=== PATIENT | female | born 1975 ===

== ENCOUNTER 2017-02-02 16:49 | Emergency (ER) | payer OTHER ==
[2017-02-02 16:50] VITALS: BMI 21.4
--- NOTE | 2017-02-02 16:59 | ED PDOC ---
HPI: Psych/Substance Abuse Time Seen by Provider: 02/02/17 16:55 Chief Complaint (Nursing): Psychiatric Evaluation Chief Complaint (Provider): crisis eval History Per: Patient, EMS Additional Complaint(s): Patient presents to ED for crisis eval. [facility]. EMS were called and she was brought here. Patient admits to being under a lot of stress over the past several weeks because her children were taken away from her. She also found out last week she is . Upon arrival, patient is tearful and anxious but she denies any suicidal or homicidal ideation. Patient denies any abd pain or vaginal bleeding. She has had no care during this so far and she states she is about 11 weeks . Patient also states she has h/o diabetes diagnosed in 07-08 but she has been non-compliant with her DM meds. Past Medical History Reviewed: Historical Data - Medical History PMH: Diabetes, HTN, Hypercholesterolemia - Surgical History Surgical History: (x 1) - Family History Family History: States: No Known Family Hx - Living Arrangements Living Arrangements: With Family - Social History Current smoker - smoking cessation education provided: No Alcohol: None Drugs: Denies - Immunization History Hx Tetanus Toxoid Vaccination: (UTD) - Home Medications Home Medications: Ambulatory Orders Medication Instructions Recorded MetFORMIN [glucOPHAGE] 1,000 mg PO BID 08/07/15 Pill For Hypotension 08/07/15 MetFORMIN [glucoPHAGE] 500 mg PO BID #60 tab 02/02/17 Comb No.42/Folic Acid 1 tab PO DAILY #60 tab 02/02/17 [Prena1 Chew] - Allergies Allergies/Adverse Reactions: Allergies Allergy/AdvReac Type Severity Reaction Status Date / Time No Known Allergies Allergy Verified 03/08/15 20:55 Review of Systems ROS Statement: Except As Marked, All Systems Reviewed And Found Negative Cardiovascular: Negative for: Chest Pain Respiratory: Negative for: Cough Gastrointestinal: Negative for: Nausea, Vomiting Genitourinary Female: Positive for: Other (11 weeks ) Psych: Positive for: Anxiety. Negative for: Suicidal ideation Physical Exam - Reviewed Nursing Documentation Reviewed: Yes Vital Signs Reviewed: Yes - Physical Exam Appears: Positive for: Well, Non-toxic, No Acute Distress Skin: Negative for: Rash Eye Exam: Positive for: Normal appearance Cardiovascular/Chest: Positive for: Regular Rate, Rhythm Respiratory: Positive for: Normal Breath Sounds Gastrointestinal/Abdominal: Positive for: Soft. Negative for: Tenderness, Distended, Guarding, Rebound Back: Negative for: L CVA Tenderness, R CVA Tenderness Extremity: Positive for: Normal ROM Neurologic/Psych: Positive for: Alert, Oriented - Laboratory Results Result Diagrams: 02/02/17 18:20 02/02/17 19:23 - ECG O2 Sat by Pulse Oximetry: 99 Pulse Ox Interpretation: Normal - Other Rad OB US X-Ray: Read By Radiologist X-Ray Interpretation: see below Medical Decision Making Medical Decision Makin41 year old female with anxiety. 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 Sunshine, patient does not meet criteria for admission and is stable for discharge. US: FINDINGS: Gestation: There is a single live intrauterine gestation. There is a heart rate of 152 beats per minute. Gestational sac has mean diameter 15.5 mm. [place] rump length measures approximately 43.2 mm. Uterus: Uterus measures approximately 11.3 x 6 x 8.4 cm. Ovaries: Left ovary measures approximately 2.95 x 2.66 x 2.21 cm. There is a corpus luteum in the left ovary. Right ovary is not well visualized. There are no right adnexal masses. Free fluid: There is no free fluid. IMPRESSION: 11 week 0 day single living intrauterine gestation, estimated date of delivery 08/24/17. Patient is aware of all diagnostic testing results, all questions answered. Patient given prescriptions for vitamins and metformin. I stressed to patient the importance of taking the metformin. She was referred to women's clinic for follow-up. Disposition - Clinical Impression Clinical Impression: Diabetes mellitus, , Depression - Patient ED Disposition Is Patient to be Admitted: No Counseled Patient/Family Regarding: Studies Performed, Diagnosis, Need For Followup, Rx Given - Disposition Referrals: [facility] [Outside] Disposition: Routine/Home Disposition Time: 20:47 Condition: STABLE Additional Instructions: Take rx meds as directed. Follow up in 2-3 days with women's clinic. Follow up as directed by crisis counselor. Prescriptions: MetFORMIN [glucoPHAGE] 500 mg PO BID #60 tab Comb No.42/Folic Acid [Prena1 Chew] 1 tab PO DAILY #60 tab Instructions: Depression (ED), (ED), Diabetes Mellitus Type 2 in Adults (ED) Forms: [employer] (Martiniquais) Print Language: INDONESIAN Results - Lab Results Lab Results: 02/02/17 02/02/17 02/02/17 19:23 18:20 18:20 WBC RBC Hgb Hct MCV MCH MCHC RDW Plt Count MPV Neut % (Auto) Lymph % (Auto) [place] % (Auto) Eos % (Auto) Baso % (Auto) Neut # Lymph # [place] # Eos # Baso # Sodium 136 Potassium 4.0 Chloride 101 Carbon Dioxide 24 Anion Gap 15 BUN 7 Creatinine 0.5 L Est GFR ( Amer) > 60 Est GFR (Non-Af Amer) > 60 Random Glucose 266 H Calcium 9.5 Total Bilirubin 0.5 AST 24 ALT 23 Alkaline Phosphatase 86 Total Protein 7.4 Albumin 4.3 Globulin 3.1 Albumin/Globulin Ratio 1.4 Beta HCG, Quant Pending Urine Color Straw Urine Clarity Slighty-cloudy Urine pH 7.0 Ur Specific [place] 1.010 Urine Protein Negative Urine Glucose (UA) >=500 Urine Ketones Negative Urine Blood Negative Urine Nitrate Negative Urine Bilirubin Negative Urine Urobilinogen 0.2-1.0 Ur Leukocyte Esterase Trace Urine RBC (Auto) 3 Urine Microscopic WBC 5 Ur Squamous Epith Cells 7 H Urine Bacteria Rare Urine Opiates Screen Negative Urine Methadone Screen Negative Ur Barbiturates Screen Negative Ur Phencyclidine Scrn Negative Ur Amphetamines Screen Negative U Benzodiazepines Scrn Negative U Oth Cocaine Metabols Negative U Cannabinoids Screen Negative Alcohol, Quantitative 02/02/17 02/02/17 18:20 18:20 WBC 8.8 RBC 4.22 Hgb 13.4 Hct 38.7 MCV 91.7 D MCH 31.6 H MCHC 34.5 RDW 12.8 Plt Count 199 MPV 8.4 Neut % (Auto) 73.8 Lymph % (Auto) 18.9 L [place] % (Auto) 6.1 Eos % (Auto) 1.0 Baso % (Auto) 0.2 Neut # 6.5 Lymph # 1.7 [place] # 0.5 Eos # 0.1 Baso # 0.0 Sodium Potassium Chloride Carbon Dioxide Anion Gap BUN Creatinine Est GFR ( Amer) Est GFR (Non-Af Amer) Random Glucose Calcium Total Bilirubin AST ALT Alkaline Phosphatase Total Protein Albumin Globulin Albumin/Globulin Ratio Beta HCG, Quant Urine Color Urine Clarity Urine pH Ur Specific [place] Urine Protein Urine Glucose (UA) Urine Ketones Urine Blood Urine Nitrate Urine Bilirubin Urine Urobilinogen Ur Leukocyte Esterase Urine RBC (Auto) Urine Microscopic WBC Ur Squamous Epith Cells Urine Bacteria Urine Opiates Screen Urine Methadone Screen Ur Barbiturates Screen Ur Phencyclidine Scrn Ur Amphetamines Screen U Benzodiazepines Scrn U Oth Cocaine Metabols U Cannabinoids Screen Alcohol, Quantitative < 10
[2017-02-02 17:03] VITALS: BP 123/71; PULSE 84; RESP 18; TEMP 97; O2SAT 99
[2017-02-02 18:39] LABS: BASO % 0.2 % (0.0-2.0); EOS # 0.1 K/uL (0.0-0.7); HEMATOCRIT 38.7 % (34.0-47.0); LYMPH # 1.7 K/uL (1.0-4.3); LYMPH % 18.9 % (20.0-40.0); MEAN CELL VOLUME 91.7 fl (81.0-99.0); MEAN CORPUSCULAR HEMOGLOBIN 31.6 pg (27.0-31.0); MEAN CORPUSCULAR HGB CONC 34.5 g/dL (33.0-37.0); MEAN PLATELET VOLUME 8.4 fl (7.2-11.7); MONO # 0.5 K/uL (0.0-0.8); MONO % 6.1 % (0.0-10.0); NEUT # 6.5 K/uL (1.8-7.0); NEUT % 73.8 % (50.0-75.0); RED CELL DISTRIBUTION WIDTH 12.8 % (11.5-14.5); WHITE BLOOD COUNT 8.8 K/uL (4.8-10.8)
[2017-02-02 19:04] LABS: RBC URINE 3 /hpf (0-3); URINE BACTERIA RARE (<OCC); URINE BILIRUBIN NEGATIVE (NEGATIVE); URINE BLOOD NEGATIVE (NEGATIVE); URINE COLOR STRAW (YELLOW); URINE GLUCOSE (UA) >=500 mg/dL (Normal); URINE KETONE NEGATIVE (NEGATIVE); URINE LEUKOCYTE ESTERASE TRACE Leu/uL (Negative); URINE PROTEIN NEGATIVE (NEGATIVE); URINE UROBILINOGEN 0.2-1.0 mg/dL (0.2-1.0); WBC URINE 5 /hpf (0-5)
[2017-02-02 19:33] LABS: ALB/GLOB RATIO 1.4 (1.0-2.1); ALKALINE PHOSPHATASE 86 U/L (38-126); ALT/SGPT 23 U/L (9-52); AST/SGOT 24 U/L (14-36); BILIRUBIN,TOTAL 0.5 mg/dl (0.2-1.3); BLOOD UREA NITROGEN 7 mg/dl (7-17); CALCIUM 9.5 mg/dL (8.4-10.2); CARBON DIOXIDE 24 mmol/L (22-30); CHLORIDE 101 mmol/L (98-107); GFR AFRICAN-AMERICAN > 60; GLUCOSE,RANDOM 266 mg/dL (65-105); SODIUM 136 mmol/l (132-148); TOTAL PROTEIN 7.4 G/DL (6.3-8.2)
--- NOTE | 2017-02-02 19:50 | US ---
EXAM: US First Trimester, Transabdominal EXAM DATE/TIME: 02/02/2017 5:22 PM CLINICAL HISTORY: 41 years old, female; Pain; complicated by abdominal or pelvic pain; Lower; First trimester; LMP: 11/24/2016; ; Additional info: 11 weeks, cramping pain TECHNIQUE: Real-time transabdominal obstetrical ultrasound of the maternal pelvis and a first trimester with image documentation. COMPARISON: There are no prior studies for comparison. FINDINGS: Gestation: There is a single live intrauterine gestation. There is a heart rate of 152 beats per minute. Gestational sac has mean diameter 15.5 mm. [place] rump length measures approximately 43.2 mm. Uterus: Uterus measures approximately 11.3 x 6 x 8.4 cm. Ovaries: Left ovary measures approximately 2.95 x 2.66 x 2.21 cm. There is a corpus luteum in the left ovary. Right ovary is not well visualized. There are no right adnexal masses. Free fluid: There is no free fluid. IMPRESSION: 11 week 0 day single living intrauterine gestation, estimated date of delivery 08/24/17
== END 2017-02-02 21:15 | disposition home or self-care (01) ==
LOC: H.ER 16:49
DX: F41.0 Panic disorder [episodic paroxysmal anxiety] (principal); F32.9 Major depressive disorder, single episode, unspecified; Z79.84 Long term (current) use of oral hypoglycemic drugs; O24.911 Unspecified diabetes mellitus in pregnancy, first trimester; O99.341 Other mental disorders complicating pregnancy, first trimester; Z3A.11 11 weeks gestation of pregnancy; Z91.14 Patient's other noncompliance with medication regimen

== ENCOUNTER 2017-04-17 13:17 | Emergency (ER) | payer MEDICAID, OTHER ==
[2017-04-17 13:18] VITALS: BMI 21.4
[2017-04-17 13:23] VITALS: BP 112/65; PULSE 106; RESP 16; TEMP 97.7; O2SAT 100
--- NOTE | 2017-04-17 14:12 | ED PDOC ---
HPI: Psych/Substance Abuse Time Seen by Provider: 04/17/17 13:37 Chief Complaint (Nursing): Altered Mental Status Chief Complaint (Provider): intoxication Additional Complaint(s): 41yo F in ER approximately 16-17 weeks in ER found by EMS in public with bizarre behavior and unstable gait. PT states she a diabetic and believes her BS is elevated. in ER pt with slurred speech, etoh on breath and unstable gait. Past Medical History Reviewed: Historical Data, Nursing Documentation, Vital Signs Vital Signs: Last Vital Signs Temp 97.7 F 04/17/17 13:19 Pulse 106 H 04/17/17 13:19 Resp 16 04/17/17 13:19 BP 112/65 04/17/17 13:19 Pulse Ox 100 04/17/17 13:19 - Medical History PMH: Diabetes, HTN, Hypercholesterolemia Denies: Hepatitis, HIV, Seizures, Sexually Transmitted Disease - Surgical History Surgical History: (x 1) - Family History Family History: States: No Known Family Hx - Immunization History Hx Tetanus Toxoid Vaccination: (UTD) - Home Medications Home Medications: Ambulatory Orders Medication Instructions Recorded MetFORMIN [glucOPHAGE] 1,000 mg PO BID 08/07/15 Pill For Hypotension 08/07/15 MetFORMIN [glucoPHAGE] 500 mg PO BID #60 tab 02/02/17 Comb No.42/Folic Acid 1 tab PO DAILY #60 tab 02/02/17 [Prena1 Chew] MetFORMIN [glucoPHAGE] 500 mg PO BID #60 tab 03/10/17 Nitrofurantoin Macrocrystals 100 mg PO BID #14 cap 03/10/17 [Macrobid] - Allergies Allergies/Adverse Reactions: Allergies Allergy/AdvReac Type Severity Reaction Status Date / Time No Known Allergies Allergy Verified 03/08/15 20:55 Review of Systems Review Of Systems: ROS cannot be obtained secondary to pt's inabilty to answer questions. Physical Exam - Reviewed Nursing Documentation Reviewed: Yes Vital Signs Reviewed: Yes - Physical Exam Appears: Positive for: Non-toxic, No Acute Distress Head Exam: Positive for: ATRAUMATIC, NORMAL INSPECTION, NORMOCEPHALIC Skin: Positive for: Normal Color, Warm, DRY Eye Exam: Positive for: EOMI, Normal appearance, PERRL ENT: Positive for: Normal ENT Inspection Neck: Positive for: Normal, Painless ROM Cardiovascular/Chest: Positive for: Regular Rate, Rhythm Respiratory: Positive for: CNT, Normal Breath Sounds Gastrointestinal/Abdominal: Positive for: Normal Exam, Bowel Sounds, Soft. Negative for: Tenderness Neurologic/Psych: Positive for: Alert, Oriented, Other (intoxicated) - Laboratory Results Result Diagrams: 04/17/17 14:22 04/17/17 14:22 - ECG O2 Sat by Pulse Oximetry: 100 - Progress ED Course And Treament: concerns ofr intoxication. [facility] contacted and made aware. Pt has an existing open case. will order: Orders Category Date Time Status ALCOHOL SERUM Stat Chem 04/17/17 13:36 Uncollected COMP METABOLIC PANEL Stat Chem 04/17/17 13:35 Uncollected TROPONIN I Stat Chem 04/17/17 13:35 Uncollected CBC (WITH DIFFERENTIAL) Stat RADHA 04/17/17 13:35 Uncollected Glucose, Blood, POC STAT Pt Care 04/17/17 13:36 Active URINALYSIS Stat URINALYSIS 04/17/17 13:35 Uncollected Medical Decision Making Medical Decision Making: pt will need a pysch evaluation. 17:57: Pt left prior to completion of treatment PT removed own heplock-found in trash along with IV bag NS. PT did not admit to SI/HI. DYFS made aware of case. according to nursing staff-pt was seen ambulatory in room with stable gait. Disposition - Clinical Impression Clinical Impression: Alcohol intoxication, - Patient ED Disposition Is Patient to be Admitted: No Counseled Patient/Family Regarding: Need For Followup - Disposition Disposition: Left W/O Treatment Disposition Time: 17:58 Condition: STABLE Forms: [employer] (Citizen [place])
[2017-04-17 14:31] LABS: BASO # 0.1 K/uL (0.0-0.2); BASO % 0.6 % (0.0-2.0); EOS % 0.1 % (0.0-4.0); HEMATOCRIT 38.3 % (34.0-47.0); LYMPH # 2.5 K/uL (1.0-4.3); MEAN CELL VOLUME 93.6 fl (81.0-99.0); MEAN CORPUSCULAR HEMOGLOBIN 32.4 pg (27.0-31.0); MEAN CORPUSCULAR HGB CONC 34.6 g/dL (33.0-37.0); MEAN PLATELET VOLUME 7.6 fl (7.2-11.7); MONO # 0.4 K/uL (0.0-0.8); MONO % 5.3 % (0.0-10.0); NEUT # 5.1 K/uL (1.8-7.0); NRBC % 0.3 % (0.0-0.0); RED CELL DISTRIBUTION WIDTH 13.3 % (11.5-14.5); WHITE BLOOD COUNT 8.1 K/uL (4.8-10.8)
[2017-04-17 14:57] LABS: ALB/GLOB RATIO 1.2 (1.0-2.1); ALKALINE PHOSPHATASE 79 U/L (38-126); ALT/SGPT 27 U/L (9-52); AST/SGOT 17 U/L (14-36); BILIRUBIN,TOTAL 0.6 mg/dl (0.2-1.3); BLOOD UREA NITROGEN 3 mg/dl (7-17); CALCIUM 8.9 mg/dL (8.4-10.2); CARBON DIOXIDE 24 mmol/L (22-30); CHLORIDE 104 mmol/L (98-107); GFR AFRICAN-AMERICAN > 60; GLUCOSE,RANDOM 275 mg/dL (65-105); SODIUM 142 mmol/l (132-148); TOTAL PROTEIN 7.5 G/DL (6.3-8.2)
[2017-04-17 15:04] LABS: ALCOHOL SERUM 370 mg/dl (0-10)
[2017-04-17 16:01] LABS: RBC URINE < 1 /hpf (0-3); URINE BILIRUBIN NEGATIVE (NEGATIVE); URINE BLOOD NEGATIVE (NEGATIVE); URINE COLOR COLORLESS (YELLOW); URINE GLUCOSE (UA) >=500 mg/dL (Normal); URINE KETONE NEGATIVE (NEGATIVE); URINE LEUKOCYTE ESTERASE NEG Leu/uL (Negative); URINE PROTEIN NEGATIVE (NEGATIVE); URINE UROBILINOGEN 0.2-1.0 mg/dL (0.2-1.0)
== END 2017-04-17 17:30 | disposition left against medical advice (07) ==
LOC: H.ER 13:17
DX: O99.312 Alcohol use complicating pregnancy, second trimester (principal); Z3A.17 17 weeks gestation of pregnancy; Z79.84 Long term (current) use of oral hypoglycemic drugs; E78.00 Pure hypercholesterolemia, unspecified; O16.2 Unspecified maternal hypertension, second trimester; O24.912 Unspecified diabetes mellitus in pregnancy, second trimester